=== PATIENT | female | born 1990 | race Two or more races ===

== ENCOUNTER → 2022-05-23 | Outpatient (CLI) | payer SELFPAY ==
[2022-05-23 15:07] LABS: BASOPHILS ABSOLUTE AUTO 0.03 K/mm3 (0.00-0.23); BASOPHILS PERCENT AUTO 0 % (0-2); EOSINOPHILS ABSOLUTE AUTO 0.16 K/mm3 (0.00-0.68); EOSINOPHILS PERCENT AUTO 2 % (0-6); Hematocrit 41.7 % (33.0-51.0); IMMATURE GRAN ABSOLUTE AUTO 0.03 K/mm3 (0.00-0.10); IMMATURE GRAN PERCENT AUTO 0 % (0-1); LYMPHOCYTES ABSOLUTE AUTO 1.45 K/mm3 (0.84-5.20); LYMPHOCYTES PERCENT AUTO 20 % (21-46); MONOCYTES ABSOLUTE AUTO 0.74 K/mm3 (0.16-1.47); MONOCYTES PERCENT AUTO 10 % (4-13); Mean Corpuscular HGB 30.4 pg (26.0-34.0); Mean Corpuscular Volume 84 fL (80-100); Mean Platelet Volume 9.2 fL (9.1-12.4); NEUTROPHILS ABSOLUTE AUTO 4.73 K/mm3 (1.96-9.15); NEUTROPHILS PERCENT AUTO 66 % (41-73); Platelet Count 216 K/mm3 (150-400); RDW Coefficient Variation 11.9 % (11.7-14.2); RDW Standard Deviation 36.1 fL (35.1-46.3); Red Blood Cell Count 4.94 M/mm3 (3.80-5.20); White Blood Cell Count 7.14 K/mm3 (4.00-11.30)
== END | disposition home or self-care (01) ==
LOC: LAB SHORT 15:01
PROVIDERS: Family Medicine
DX: O20.0 Threatened abortion (principal)
CPT/HCPCS: 84702; 85025

== ENCOUNTER → 2022-09-27 | Outpatient (CLI) | payer BC ==
[2022-09-28 15:11] LABS: HPV 16 Negative (Negative); HPV 18 Negative (Negative); HPV OTHER HR TYPES Negative (Negative)
== END | disposition home or self-care (01) ==
LOC: LAB SHORT 16:47 → LAB 16:47
PROVIDERS: Obstetrics & Gynecology
DX: Z01.419 Encounter for gynecological examination (general) (routine) without abnormal findings (principal)
CPT/HCPCS: 87624; G0145

== ENCOUNTER → 2023-09-26 | Outpatient (CLI) | payer BC ==
[2023-09-28 11:19] LABS: APTIMA MEDIA TYPE Urine; C. TRACHOMATIS BY TMA Negative (Negative); N. GONORRHOEAE BY TMA Negative (Negative); SPECIMEN SOURCE Urine
== END ==
LOC: LAB SHORT 15:53 → LAB 15:53
PROVIDERS: Obstetrics & Gynecology
DX: Z11.3 Encounter for screening for infections with a predominantly sexual mode of transmission (principal)
CPT/HCPCS: 87491; 87591

== ENCOUNTER → 2023-10-26 | Outpatient (CLI) | payer BC | LOC: LAB 17:52 → LAB SHORT 17:52 | DX: N76.0 Acute vaginitis (principal) ==

== ENCOUNTER → 2023-12-25 | Outpatient (CLI) | payer BC | END | disposition home or self-care (01) | LOC: LAB SHORT 17:03 → LAB 17:03 | DX: O09.90 Supervision of high risk pregnancy, unspecified, unspecified trimester (principal) | CPT/HCPCS: 87086 ==

== ENCOUNTER → 2024-03-04 | Outpatient (CLI) | payer BC | LOC: LAB SHORT 17:04 → LAB 17:04 | DX: O09.90 Supervision of high risk pregnancy, unspecified, unspecified trimester (principal) | CPT/HCPCS: 87081; 87150 ==

== ENCOUNTER 2024-03-30 19:22 | Inpatient (IN) | payer BC ==
[~2024-03-30] VITALS: Ht 162.6 cm; Wt 71.4 kg
[2024-03-30] MEDS ORDERED: Misoprostol 25 MCG Tab VAG PRN (19:45)
[2024-03-30] MEDS ORDERED: Lactated Ringer's 1,000 ML IV SCH (19:45)
[2024-03-30] MEDS ORDERED: Misoprostol 200 MCG Tab PR PRN (19:55)
[2024-03-30] MEDS ORDERED: Ondansetron HCl 2 MG / ML 2ML Vial IV PRN (19:55)
[2024-03-30] MEDS ORDERED: Oxytocin 10 Unit / ML Vial IM PRN (19:55)
[2024-03-30] MEDS ORDERED: Methylergonovine Maleate 0.2MG / ML 1ML Amp IM PRN (19:55)
[2024-03-30] MEDS ORDERED: OXYTOCIN/RINGER'S LACTATE 500 ML IV PRN (19:55)
[2024-03-30] MEDS ORDERED: Misoprostol 200 MCG Tab BC PRN (19:55)
[2024-03-30] MEDS ORDERED: Lactated Ringer's 1,000 ML IV PRN (19:55)
[2024-03-30] MEDS ORDERED: Tranexamic Acid 100 ML IV SCH (19:55)
[2024-03-30] MEDS ORDERED: Carboprost Tromethamine 250 MCG/ML 1ML Amp IM PRN (19:55)
[2024-03-30] MEDS ORDERED: Penicillin G Potassium 5,000,000 UNITS in NS 250 ML IV ONE (19:55)
[2024-03-30] MEDS ORDERED: Acetaminophen 500 MG Tab PO PRN (19:55)
[2024-03-30] MEDS ORDERED: Penicillin G Potassium 2,500,000 UNITS in Dextrose 5% 100 ML IV SCH (20:00)
[2024-03-30] MEDS ORDERED: Calcium Carbonate 500 MG Tab Chew PO PRN (20:00)
[2024-03-30 20:40] LABS: BASOPHILS ABSOLUTE AUTO 0.03 K/mm3 (0.00-0.23); BASOPHILS PERCENT AUTO 0 % (0-2); EOSINOPHILS ABSOLUTE AUTO 0.09 K/mm3 (0.00-0.68); EOSINOPHILS PERCENT AUTO 1 % (0-6); Hematocrit 39.4 % (33.0-51.0); Hemoglobin 12.9 g/dL (11.5-16.0); IMMATURE GRAN ABSOLUTE AUTO 0.16 K/mm3 (0.00-0.10); IMMATURE GRAN PERCENT AUTO 2 % (0-1); LYMPHOCYTES ABSOLUTE AUTO 2.31 K/mm3 (0.84-5.20); LYMPHOCYTES PERCENT AUTO 24 % (21-46); MONOCYTES ABSOLUTE AUTO 0.95 K/mm3 (0.16-1.47); MONOCYTES PERCENT AUTO 10 % (4-13); Mean Corpuscular HGB 24.6 pg (26.0-34.0); Mean Corpuscular HGB Conc 32.7 g/dL (31.5-36.5); Mean Corpuscular Volume 75 fL (80-100); Mean Platelet Volume 9.9 fL (9.1-12.4); NEUTROPHILS ABSOLUTE AUTO 6.27 K/mm3 (1.96-9.15); NEUTROPHILS PERCENT AUTO 64 % (41-73); Platelet Count 214 K/mm3 (150-400); RDW Coefficient Variation 13.8 % (11.7-14.2); RDW Standard Deviation 36.6 fL (35.1-46.3); Red Blood Cell Count 5.24 M/mm3 (3.80-5.20); White Blood Cell Count 9.81 K/mm3 (4.00-11.30)
[2024-03-30 21:35] VITALS: BP 117/70
[2024-03-30] MEDS ORDERED: ASPI81CH PO (22:11)
[2024-03-30 22:16] VITALS: BP 116/81
[2024-03-30 22:47] VITALS: BP 108/60
[2024-03-30 23:16] VITALS: BP 101/62
[2024-03-30 23:46] VITALS: BP 94/55
[2024-03-31] VITALS (18 sets, daily range): BP systolic 89–128; BP diastolic 50–68
[2024-03-31] MEDS ORDERED: Lactated Ringer's 1,000 ML IV SCH ×2 (08:00)
[2024-03-31] MEDS ORDERED: FentaNYL 2mcg/ml-Bup 0.1% Epd 250 ML EPI PRN (08:00)
[2024-03-31] MEDS ORDERED: ePHEDrine Sulfate 50 MG/ML 1ML Injection XX PRN (08:00)
[2024-03-31] MEDS ORDERED: Misoprostol 25 MCG Tab PO SCH (20:00)
[2024-04-01] VITALS (27 sets, daily range): BP systolic 103–143; BP diastolic 55–75
[2024-04-01] MEDS ORDERED: Sennosides 8.6 MG Tab PO ONE (02:40)
[2024-04-01] MEDS ORDERED: Penicillin G Potassium 5,000,000 UNITS in NS 250 ML IV ONE (02:40)
[2024-04-01] MEDS ORDERED: OXYTOCIN/RINGER'S LACTATE 500 ML IV SCH (03:25)
[2024-04-01] MEDS ORDERED: Penicillin G Potassium 2,500,000 UNITS in Dextrose 5% 100 ML IV SCH (07:30)
[2024-04-01] MEDS ORDERED: Insulin Human Lispro 100 Units/ML 3ML Syringe SC SCH (09:11)
[2024-04-02] VITALS (22 sets, daily range): BP systolic 104–130; BP diastolic 55–75
[2024-04-02] MEDS ORDERED: DiphenhydrAMINE HCl 50 MG/ML 1ML Vial IV ONE (10:00)
[2024-04-02] MEDS ORDERED: Benzocaine Topical Anesthetic Spray 60GM TOP PRN (18:20)
[2024-04-02] MEDS ORDERED: FLU VACC TS2024-25(6MOS UP)/PF 45 MCG/0.5 ML SYRINGE IM SCH (18:20)
[2024-04-02] MEDS ORDERED: Docusate Sodium 100 MG Cap PO PRN (18:20)
[2024-04-02] MEDS ORDERED: Methylergonovine Maleate 0.2MG / ML 1ML Amp IM PRN (18:20)
[2024-04-02] MEDS ORDERED: Acetaminophen 500 MG Tab PO PRN (18:20)
[2024-04-02] MEDS ORDERED: Misoprostol 100 MCG Tab PO PRN (18:20)
[2024-04-02] MEDS ORDERED: Witch Hazel/Glycerin PADS TOP PRN (18:25)
[2024-04-02] MEDS ORDERED: Ibuprofen 400 MG Tab PO PRN (18:25)
[2024-04-02] MEDS ORDERED: Rho(D) Immune Globulin 300 MCG / SYR IM ONE (18:25)
[2024-04-02] MEDS ORDERED: Lanolin Cream TOP PRN (18:25)
[2024-04-02] MEDS ORDERED: Oxytocin 10 Unit / ML Vial IM ONE (18:25)
[2024-04-02] MEDS ORDERED: Lactated Ringer's 1,000 ML IV SCH (18:30)
[2024-04-03] MEDS ORDERED: Ketorolac Tromethamine 30mg Vial IV SCH
[2024-04-03 00:21] VITALS: BP 119/61
[2024-04-03 05:34] VITALS: BP 99/52
[2024-04-03 07:28] VITALS: BP 99/58
[2024-04-03] MEDS ORDERED: Prenatal Vit/FE Fumarate/FA 1 Tab PO SCH (09:00)
[2024-04-03] MEDS ORDERED: Measles/Mumps/Rubella Vaccine 0.5 ML Vial SC ONE (10:00)
[2024-04-03 12:01] VITALS: BP 125/66
[2024-04-03 15:19] VITALS: BP 114/59
[2024-04-03 17:52] VITALS: BP 130/65
== END 2024-04-03 18:15 | disposition home or self-care (01) | DRG 806 ==
LOC: OBS 19:22 → BC 19:26 → OBS 19:45 → BC 19:46
PROVIDERS: Obstetrics & Gynecology; ADMIT Family Medicine
PROC: 10E0XZZ Delivery of Products of Conception, External Approach (ICD-10-PCS; principal; 2024-04-02)
PROC: 0UQG7ZZ Repair Vagina, Via Natural or Artificial Opening (ICD-10-PCS; 2024-04-02)
PROC: 10H07YZ Insertion of Other Device into Products of Conception, Via Natural or Artificial Opening (ICD-10-PCS; 2024-04-02)
PROC: 3E0R3BZ Introduction of Anesthetic Agent into Spinal Canal, Percutaneous Approach (ICD-10-PCS; 2024-04-02)
PROC: 00HU33Z Insertion of Infusion Device into Spinal Canal, Percutaneous Approach (ICD-10-PCS; 2024-04-02)
DX: O24.420 Gestational diabetes mellitus in childbirth, diet controlled (principal); Q21.12 Patent foramen ovale; Z37.0 Single live birth; Z3A.39 39 weeks gestation of pregnancy; Z87.891 Personal history of nicotine dependence; Z90.49 Acquired absence of other specified parts of digestive tract; O99.824 Streptococcus B carrier state complicating childbirth; O99.892 Other specified diseases and conditions complicating childbirth
CPT/HCPCS: 36415; 51702; 59200; 82947; 85025; 86850; 86900; 86901; 86923; 90471; 90707; A9270; J1200; J1885; J2405; J2540; J2590; J7050; J7120